=== PATIENT | female | born 1955 | race Caucasian/White ===

== ENCOUNTER 2020-07-19 13:59 | Inpatient (IN) | payer OTHER, BC ==
[~2020-07-19 13:59] MED LIST: Iopamidol-370 76% 500 ML 1 ML ONE
[2020-07-19] MEDS ORDERED: Ondansetron PF 4 MG/2 ML Vial ONE ×2 (14:27→16:25)
[2020-07-19 14:36] LABS: #Basophils 0.1 thou/uL (0.0-0.2); #Lymphocytes 0.7 thou/uL (1.20-3.40); #Monocytes 0.4 thou/uL (0.11-0.59); #Neutrophils 12.8 thou/uL (1.40-6.50); %Basophils 0.5 % (0.0-1.0); %Eosinophils 0.1 % (0.0-10.0); %Lymphocytes 5.1 % (21.0-51.0); %Monocytes 3.1 % (0.0-10.0); %Neutrophils 91.3 % (42.0-75.0); Hemoglobin 8.4 g/dL (12.0-16.0); Mean Corpuscular HGB CONC 31.7 g/dL (32.0-36.0); Mean Corpuscular Hemoglobin 30.9 pg (27.0-31.0); Mean Corpuscular Volume 97.3 fL (78.0-98.0); Mean Platelet Volume 9.7 fL (7.4-10.4); Platelet Count 259 thou/uL (130-400); RBC Distribution Width 12.7 % (11.5-14.5); Red Blood Cell (RBC) Count 2.71 mill/uL (4.20-5.40)
[2020-07-19] MEDS ORDERED: Morphine 4 MG/ML VIAL ONE ×2 (14:41→16:28)
[2020-07-19] MEDS ORDERED: Pantoprazole 80 MG, Admixture Fee 1 EACH in Sodium Chloride 0.9% 100 ML IVPB SCH ×2 (14:45)
[2020-07-19 14:58] LABS: ALT (SGPT) 83 U/L (8-55); AST (SGOT) 58 U/L (5-34); Albumin 3.2 g/dL (3.4-4.8); Alkaline Phosphatase 525 U/L (40-110); Anion Gap 13 mmol/L (10-20); BUN (Urea Nitrogen) 103 mg/dL (9.8-20.1); Bilirubin, Total 0.5 mg/dL (0.2-1.2); Calc. Creatinine Clearance 0 mL/min (70-130); Calcium 9.1 mg/dL (7.8-10.44); Carbon Dioxide 28 mmol/L (23-31); Chloride 97 mmol/L (98-107); Globulin 3.1 g/dL (2.4-3.5); Glucose 161 mg/dL (80-115); Lipase 85 U/L (8-78); Potassium 3.2 mmol/L (3.5-5.1); Protein, Total 6.3 g/dL (5.8-8.1); Sodium 135 mmol/L (136-145)
[2020-07-19 15:21] LABS: CKMB 8.7 ng/mL (0-6.6)
[2020-07-19 16:17] LABS: Bilirubin Negative (Negative); Blood, Urine Negative (Negative); Clarity Clear (Clear); Glucose, Urine (Dipstick) Normal (Negative); Ketone, Urine Negative (Negative); Leukocyte Negative Leu/uL (Negative); Nitrite Negative (Negative); Protein, Urine (Dipstick) Negative (Neg-Trace); Specific Gravity, Urine 1.023 (1.002-1.036); Urobilinogen Normal mg/dL (Less than 2); pH, Urine 6.5 (5.0-9.0)
[2020-07-19] MEDS ORDERED: Pantoprazole 40 MG VIAL ONE (16:28)
[2020-07-19] MEDS ORDERED: HYDROcodone/Acetaminophen 7.5/325 mg Tablet PO PRN (16:53)
[2020-07-19] MEDS ORDERED: HYDROcodone/Acetaminophen 5/325 mg Tablet PO PRN (16:53)
[2020-07-19] MEDS ORDERED: Senokot S 8.6-50 MG TAB PO PRN (16:53)
[2020-07-19] MEDS ORDERED: Octreotide Acetate 1,250 MCG in Sodium Chloride 0.9% 250 ML 250 ML IVPB SCH (17:00)
[2020-07-19] MEDS ORDERED: Octreotide Acetate 50 MCG/ML AMP SLOW IVP SCH (17:00)
[2020-07-19] MEDS ORDERED: Dextrose 5 % And 0.9 % NaCl 1,000 ML IV SCH (17:00)
[2020-07-19] MEDS ORDERED: HYDROmorphone 0.5 MG/0.5 ML SYRINGE ONE (17:22)
[2020-07-19] MEDS ORDERED: cefTRIAXone\\ROCEPHIN 1 GM in Sodium Chloride 0.9% 100 ML IVPB SCH (18:00)
[2020-07-19] MEDS ORDERED: HYDROmorphone 0.5 MG/0.5 ML SYRINGE SLOW IVP PRN (18:04)
[2020-07-19 20:10] LABS: Hemoglobin 8.6 g/dL (12.0-16.0); Platelet Count 259 thou/uL (130-400)
[2020-07-19 20:17] VITALS: BMI 16.6
[2020-07-19] MEDS: Potassium Chloride 20 MEQ in Premix Bag 1 BAG IVPB SCH (23:23)
[2020-07-19] MEDS: Morphine 4 MG/ML VIAL SLOW IVP PRN (23:26)
[2020-07-19] MEDS: Dextrose 5 % And 0.9 % NaCl 1,000 ML IV SCH (23:49)
[2020-07-20] MEDS: Potassium Chloride 20 MEQ in Premix Bag 1 BAG IVPB SCH (01:36)
[2020-07-20 02:20] LABS: Hemoglobin 8.5 g/dL (12.0-16.0); Platelet Count 269 thou/uL (130-400)
[2020-07-20] MEDS: Morphine 4 MG/ML VIAL SLOW IVP PRN ×2 (03:31→09:09)
[2020-07-20] MEDS: Ondansetron PF 4 MG/2 ML Vial IVP PRN ×2 (03:42→09:14)
[2020-07-20 06:27] LABS: Anion Gap 21 mmol/L (10-20); BUN (Urea Nitrogen) 93 mg/dL (9.8-20.1); Calc. Creatinine Clearance 25 mL/min (70-130); Calcium 8.4 mg/dL (7.8-10.44); Carbon Dioxide 17 mmol/L (23-31); Chloride 108 mmol/L (98-107); Glucose 239 mg/dL (80-115); Potassium 3.6 mmol/L (3.5-5.1); Sodium 142 mmol/L (136-145)
[2020-07-20 06:32] LABS: Hemoglobin 8.3 g/dL (12.0-16.0); Mean Corpuscular HGB CONC 31.1 g/dL (32.0-36.0); Mean Corpuscular Hemoglobin 31.2 pg (27.0-31.0); Mean Platelet Volume 10.2 fL (7.4-10.4); Platelet Count 281 thou/uL (130-400); RBC Distribution Width 13.3 % (11.5-14.5); Red Blood Cell (RBC) Count 2.64 mill/uL (4.20-5.40); White Blood Cell (WBC) Count 44.5 thou/uL (4.8-10.8)
[2020-07-20 07:00] LABS: Band 35 % (5-11); Lymphocytes 2 % (21-51); MDiff Complete? YES; Metamyelocyte 1 % (0-0); Monocytes 1 % (0-10); Myelocyte 2 % (0-0); Neutrophil 59 % (42-75)
[2020-07-20] MEDS ORDERED: ALPRAZolam 0.5 MG TAB PO PRN (07:33)
[2020-07-20] MEDS: Venlafaxine XR 37.5 MG CAP PO SCH ×2 (08:13→20:07)
[2020-07-20 08:19] LABS: Hemoglobin 8.5 g/dL (12.0-16.0); Platelet Count 254 thou/uL (130-400)
[2020-07-20 08:49] LABS: SARS-CoV-2 PCR by NAA Not Detected (NotDetected)
[2020-07-20] MEDS ORDERED: Ursodiol 300 MG CAP PO SCH (09:00)
[2020-07-20] MEDS ORDERED: Colestipol HCl 5 GM PK PO SCH (09:00)
[2020-07-20] MEDS ORDERED: Non-Formulary Item 1 EACH (Levothyroxine Sodium [Levothyroxine] 50 MCG Capsule) PO SCH (09:00)
[2020-07-20] MEDS: Dextrose 5 % And 0.9 % NaCl 1,000 ML IV SCH (09:18)
[2020-07-20] MEDS ORDERED: Sodium Chloride 0.9% 1,000 ML IV SCH ×2 (12:45)
[2020-07-20] MEDS ORDERED: Dexmedetomidine 200 MCG/2 ML VIAL ONE (13:23)
[2020-07-20] MEDS ORDERED: Fentanyl 100 MCG/2 ML VIAL ONE ×2 (13:23→16:06)
[2020-07-20] MEDS ORDERED: Bupivacaine PF 0.5% 30 ML VIAL ONE (13:47)
[2020-07-20] MEDS ORDERED: Lidocaine 1% w/Epinephrine 1:100K 20 ML VIAL ONE (13:47)
[2020-07-20] MEDS: MEROPENEM 1 GM/50 ML 1 GM in Premix Bag 1 BAG IVPB SCH ×2 (13:52→21:20)
[2020-07-20] MEDS ORDERED: Phenylephrine 10 MG/ML VIAL ONE ×2 (13:59→15:10)
[2020-07-20] MEDS ORDERED: Norepinephrine 4 MG/4 ML VIAL ONE (14:04)
[2020-07-20] MEDS ORDERED: Lidocaine 1% PF 5 ML VIAL ONE (14:19)
[2020-07-20] MEDS ORDERED: Dexamethasone 20 MG/5 ML VIAL ONE (14:19)
[2020-07-20] MEDS ORDERED: Succinylcholine 200 MG/10 ml SYRINGE FS ONE (14:19)
[2020-07-20] MEDS ORDERED: Rocuronium Bromide 10 MG/ML (10ML VIAL) ONE (14:19)
[2020-07-20] MEDS ORDERED: PHENYLEPHRINE-NS 100 MCG/ML 10 ML SYRINGE ONE (14:19)
[2020-07-20] MEDS ORDERED: PROPOFOL 200 MG/20 ML VIAL ONE (14:19)
[2020-07-20] MEDS ORDERED: Sodium Chloride 0.9% 20 ML ONE (14:42)
[2020-07-20] MEDS ORDERED: Propofol BOLUS 1,000 MG/100 ML VIAL IV PRN (16:15)
[2020-07-20] MEDS ORDERED: Fentanyl BOLUS 250 ML IVPB PRN (16:15)
[2020-07-20] MEDS ORDERED: Lorazepam 2 MG/ML VIAL SLOW IVP PRN (16:15)
[2020-07-20] MEDS ORDERED: Ventilator Sedation Protocol 1 EACH FS SCH (16:15)
[2020-07-20] MEDS ORDERED: Morphine 2 MG/ML VIAL SLOW IVP PRN (16:15)
[2020-07-20] MEDS ORDERED: Fentanyl CADD 100 ML IV SCH (16:15)
[2020-07-20] MEDS ORDERED: DISCONTINUE PREVIOUS NARCOTIC PAIN MEDICATIONS AND BENZODIAZEPINES FS SCH (16:15)
[2020-07-20] MEDS ORDERED: Morphine 4 MG/ML VIAL SLOW IVP PRN (16:15)
[2020-07-20 16:55] LABS: Actual Bicarbonate (HCO3a) 16.7 mEq/L (22-28); Base Excess (BEa) -9.4 mEq/L (-2.0 to +3.0); CO2 Tension 37.1 mmHg (35.0-45.0); Calcium, Ionized (arterial) 1.05 mmol/L (1.12-1.30); Carboxyhemoglobin (COHb) 3.4 gm% (0.0-3.0); Hemoglobin (Hb) 6.1 g/dL (12.0-16.0); O2 Tension (PaO2), arterial 324.4 mmHg (> 80.0); Potassium - ABG Lab 3.82 mmol/L (3.70-5.30); pH, Arterial 7.27 (7.35-7.45)
[2020-07-20 16:56] LABS: ALV-art Gradient 57.025 mmHg (0-20); Puncture Site LRA
[2020-07-20] MEDS: Propofol 1,000 MG/100 ML VIAL IV PRN (17:38)
[2020-07-20] MEDS: Albumin 25% 25 GM/100 ML BOT IVPB SCH (17:38)
[2020-07-20] MEDS: Sodium Chloride 0.9% 1,000 ML IV SCH (17:56)
[2020-07-20] MEDS: Albuterol Sulfate 2.5 mg/3 ml Neb NEB SCH ×2 (18:49→23:27)
[2020-07-20] MEDS: hydrALAZINE 20 MG/ML VIAL SLOW IVP PRN (19:34)
[2020-07-20] MEDS: Enoxaparin Sodium 30 MG/0.3 ML SYRINGE SC SCH (20:04)
[2020-07-21] MEDS: Sodium Chloride 0.9% 1,000 ML IV SCH ×2 (00:10→16:35)
[2020-07-21] MEDS: Albumin 25% 25 GM/100 ML BOT IVPB SCH ×2 (00:53→05:07)
[2020-07-21 04:15] LABS: Anion Gap 14 mmol/L (10-20); BUN (Urea Nitrogen) 67 mg/dL (9.8-20.1); Calc. Creatinine Clearance 27 mL/min (70-130); Calcium 7.6 mg/dL (7.8-10.44); Carbon Dioxide 19 mmol/L (23-31); Chloride 118 mmol/L (98-107); Glucose 142 mg/dL (80-115); Magnesium 1.6 mg/dL (1.6-2.6); Potassium 3.4 mmol/L (3.5-5.1); Sodium 148 mmol/L (136-145)
[2020-07-21 04:26] LABS: Band 26 % (5-11); Hemoglobin 7.9 g/dL (12.0-16.0); Hypochromia SLIGHT = 6-15 cells (100X) (0-5/hpf); Lymphocytes 8 % (21-51); MDiff Complete? YES; Mean Corpuscular HGB CONC 33.2 g/dL (32.0-36.0); Mean Corpuscular Hemoglobin 30.1 pg (27.0-31.0); Mean Corpuscular Volume 90.7 fL (78.0-98.0); Mean Platelet Volume 9.7 fL (7.4-10.4); Metamyelocyte 5 % (0-0); Monocytes 7 % (0-10); Neutrophil 54 % (42-75); Platelet Count 115 thou/uL (130-400); Platelet Morphology Comment Appears Decreased; RBC Distribution Width 16.3 % (11.5-14.5); Red Blood Cell (RBC) Count 2.63 mill/uL (4.20-5.40); White Blood Cell (WBC) Count 12.1 thou/uL (4.8-10.8)
[2020-07-21] MEDS: Propofol 1,000 MG/100 ML VIAL IV PRN (05:09)
[2020-07-21] MEDS: MEROPENEM 1 GM/50 ML 1 GM in Premix Bag 1 BAG IVPB SCH ×3 (05:10→21:34)
[2020-07-21] MEDS ORDERED: Levothyroxine Sodium 50 MCG TAB PO SCH (06:00)
[2020-07-21 07:01] LABS: Actual Bicarbonate (HCO3a) 19.1 mEq/L (22-28); Base Excess (BEa) -3.7 mEq/L (-2.0 to +3.0); CO2 Tension 27.5 mmHg (35.0-45.0); Calcium, Ionized (arterial) 0.99 mmol/L (1.12-1.30); Carboxyhemoglobin (COHb) 1.1 gm% (0.0-3.0); Hemoglobin (Hb) 10.5 g/dL (12.0-16.0); Potassium - ABG Lab 2.99 mmol/L (3.70-5.30); pH, Arterial 7.46 (7.35-7.45)
[2020-07-21 07:14] LABS: ALV-art Gradient 199.525 mmHg (0-20); O2 Tension (PaO2), arterial 51.3 mmHg (> 80.0); Puncture Site RBA
[2020-07-21] MEDS: Albuterol Sulfate 2.5 mg/3 ml Neb NEB SCH ×4 (07:17→23:17)
[2020-07-21] MEDS ORDERED: DC Sedation Protocol FS ONE (07:39)
[2020-07-21] MEDS: Sodium Chloride 0.45% 1,000 ML IV SCH ×2 (09:19→18:28)
[2020-07-21] MEDS ORDERED: Fentanyl 100 MCG/2 ML VIAL SLOW IVP PRN (09:56)
[2020-07-21] MEDS: hydrALAZINE 20 MG/ML VIAL SLOW IVP PRN (11:05)
[2020-07-21] MEDS: Venlafaxine XR 37.5 MG CAP PO SCH ×2 (11:05→21:38)
[2020-07-21] MEDS: Enoxaparin Sodium 30 MG/0.3 ML SYRINGE SC SCH (21:37)
[2020-07-21] MEDS: Acetaminophen 325 MG TAB PO PRN (21:38)
[2020-07-22] MEDS: Sodium Chloride 0.45% 1,000 ML IV SCH (04:37)
[2020-07-22] MEDS: MEROPENEM 1 GM/50 ML 1 GM in Premix Bag 1 BAG IVPB SCH ×3 (05:46→22:34)
[2020-07-22] MEDS: Acetaminophen 325 MG TAB PO PRN (05:55)
[2020-07-22 05:58] LABS: Hemoglobin 8.5 g/dL (12.0-16.0); Mean Corpuscular HGB CONC 31.6 g/dL (32.0-36.0); Mean Corpuscular Hemoglobin 28.6 pg (27.0-31.0); Mean Corpuscular Volume 90.6 fL (78.0-98.0); Mean Platelet Volume 10.5 fL (7.4-10.4); Platelet Count 137 thou/uL (130-400); RBC Distribution Width 16.6 % (11.5-14.5); Red Blood Cell (RBC) Count 2.98 mill/uL (4.20-5.40); White Blood Cell (WBC) Count 11.7 thou/uL (4.8-10.8)
[2020-07-22 06:11] LABS: Anion Gap 11 mmol/L (10-20); BUN (Urea Nitrogen) 52 mg/dL (9.8-20.1); Calc. Creatinine Clearance 32 mL/min (70-130); Calcium 8.5 mg/dL (7.8-10.44); Carbon Dioxide 25 mmol/L (23-31); Chloride 114 mmol/L (98-107); Glucose 118 mg/dL (80-115); Sodium 148 mmol/L (136-145)
[2020-07-22 06:14] LABS: Potassium 2.3 mmol/L (3.5-5.1)
[2020-07-22 06:23] LABS: Lymphocytes 4 % (21-51); MDiff Complete? YES; Metamyelocyte 2 % (0-0); Monocytes 2 % (0-10); Neutrophil 91 % (42-75); Platelet Morphology Comment Appears Adequate; Reactive Lymphocytes 1 % (0-10)
[2020-07-22] MEDS ORDERED: Potassium Chloride 20 MEQ TAB PO SCH (06:45)
[2020-07-22] MEDS ORDERED: Potassium Chloride 40 MEQ in Premix Bag 1 BAG IVPB SCH (07:00)
[2020-07-22] MEDS: Albuterol Sulfate 2.5 mg/3 ml Neb NEB SCH ×4 (07:15→23:35)
[2020-07-22] MEDS ORDERED: EPINEPHrine 1 MG/10 ML Abboject SYRINGE ONE (08:23)
[2020-07-22] MEDS ORDERED: Sodium Chloride 0.9% 500 ML IV SCH (08:30)
[2020-07-22] MEDS ORDERED: Norepinephrine 8 MG/0.9% NS 250 ML ONE (08:46)
[2020-07-22 09:10] LABS: Actual Bicarbonate (HCO3a) 10.2 mEq/L (22-28); Base Excess (BEa) -15.9 mEq/L (-2.0 to +3.0); Carboxyhemoglobin (COHb) 1.8 gm% (0.0-3.0); O2 Tension (PaO2), arterial 320.5 mmHg (> 80.0); Potassium - ABG Lab 2.78 mmol/L (3.70-5.30)
[2020-07-22 09:12] LABS: pH, Arterial 7.23 (7.35-7.45)
[2020-07-22 09:13] LABS: CO2 Tension 24.7 mmHg (35.0-45.0); Hemoglobin (Hb) 5.3 g/dL (12.0-16.0)
[2020-07-22 09:14] LABS: ALV-art Gradient 76.425 mmHg (0-20); Puncture Site RBA
[2020-07-22] MEDS ORDERED: Norepinephrine 8 MG/0.9% NS 250 ML IVPB SCH (09:30)
[2020-07-22] MEDS ORDERED: Electrolyte Replacement Protocol 1 EACH FS SCH (09:45)
[2020-07-22 09:59] LABS: #Lymphocytes 1.4 thou/uL (1.20-3.40); #Monocytes 0.4 thou/uL (0.11-0.59); #Neutrophils 6.8 thou/uL (1.40-6.50); %Basophils 0.1 % (0.0-1.0); %Eosinophils 0.2 % (0.0-10.0); %Lymphocytes 16.3 % (21.0-51.0); %Monocytes 4.9 % (0.0-10.0); %Neutrophils 78.5 % (42.0-75.0); Hemoglobin 4.9 g/dL (12.0-16.0); Mean Corpuscular Hemoglobin 31.2 pg (27.0-31.0); Mean Corpuscular Volume 94.4 fL (78.0-98.0); Platelet Count 131 thou/uL (130-400); RBC Distribution Width 17.1 % (11.5-14.5); Red Blood Cell (RBC) Count 1.58 mill/uL (4.20-5.40); White Blood Cell (WBC) Count 8.7 thou/uL (4.8-10.8)
[2020-07-22] MEDS: Venlafaxine XR 37.5 MG CAP PO SCH (10:00)
[2020-07-22] MEDS ORDERED: Pantoprazole 40 MG VIAL IVP SCH (10:00)
[2020-07-22] MEDS ORDERED: Lactated Ringer's 1,000 ML IV SCH (10:00)
[2020-07-22] MEDS ORDERED: Lactated Ringer's 500 ML IV SCH (10:00)
[2020-07-22 10:06] LABS: INR-International Normal Ratio 1.5; PTT 40.7 sec (22.9-36.1); Prothrombin Time 18.2 sec (12.0-14.7)
[2020-07-22] MEDS: Potassium Chloride 40 MEQ in Sodium Chloride 0.9% 250 ML 250 ML IVPB SCH (10:10)
[2020-07-22 10:17] LABS: ALT (SGPT) 212 U/L (8-55); AST (SGOT) 269 U/L (5-34); Albumin 2.3 g/dL (3.4-4.8); Alkaline Phosphatase 124 U/L (40-110); Anion Gap 27 mmol/L (10-20); BUN (Urea Nitrogen) 56 mg/dL (9.8-20.1); Bilirubin, Total 1.4 mg/dL (0.2-1.2); Calc. Creatinine Clearance 24 mL/min (70-130); Calcium 7.4 mg/dL (7.8-10.44); Carbon Dioxide 10 mmol/L (23-31); Chloride 118 mmol/L (98-107); Globulin 1.7 g/dL (2.4-3.5); Sodium 152 mmol/L (136-145)
[2020-07-22 10:23] LABS: Glucose 36 mg/dL (80-115); Potassium 2.9 mmol/L (3.5-5.1)
[2020-07-22] MEDS ORDERED: Dextrose 50% Abboject 50 ML SYRINGE ONE (10:27)
[2020-07-22] MEDS ORDERED: Succinylcholine 200 MG/10 ml SYRINGE FS ONE (10:29)
[2020-07-22] MEDS ORDERED: Phenylephrine 10 MG/ML VIAL ONE (10:33)
[2020-07-22] MEDS ORDERED: Fentanyl 100 MCG/2 ML VIAL ONE (10:33)
[2020-07-22] MEDS ORDERED: Ketamine 50 MG/ML (10ML VIAL) ONE (10:33)
[2020-07-22] MEDS ORDERED: Norepinephrine 4 MG/4 ML VIAL ONE (10:33)
[2020-07-22] MEDS ORDERED: Vecuronium 10 MG VIAL ONE ×4 (10:42→10:49)
[2020-07-22] MEDS ORDERED: Calcium Chloride 1 GM/10 ML Abboject SYRINGE ONE ×2 (10:49→11:28)
[2020-07-22] MEDS ORDERED: PHENYLEPHRINE-NS 100 MCG/ML 10 ML SYRINGE ONE (10:49)
[2020-07-22] MEDS ORDERED: ePHEDrine Sulfate 50 MG/10 ML VIAL ONE (10:49)
[2020-07-22] MEDS ORDERED: Sodium Bicarbonate 2.5 MEQ/5 ML VIAL ONE ×2 (11:11→11:28)
[2020-07-22] MEDS ORDERED: Sodium Bicarb 50 MEQ/50 ML Abboject 8.4% SYRINGE ONE ×2 (11:11→11:29)
[2020-07-22] MEDS ORDERED: Midazolam HCl 5 mg/5 ml Vial ONE (11:13)
[2020-07-22 11:21] LABS: Lactic Acid 14.7 mmol/L (0.5-2.2)
[2020-07-22] MEDS ORDERED: Magnesium 2 GM/50 ML 2 GM in Premix Bag 1 BAG IVPB SCH (11:30)
[2020-07-22 13:32] LABS: Actual Bicarbonate (HCO3a) 16.2 mEq/L (22-28); Base Excess (BEa) -3.8 mEq/L (-2.0 to +3.0); Carboxyhemoglobin (COHb) 0.4 gm% (0.0-3.0); Hemoglobin (Hb) 11.2 g/dL (12.0-16.0); O2 Tension (PaO2), arterial 88.3 mmHg (> 80.0)
[2020-07-22] MEDS: Dextrose 5% w/ 20 mEq KCl 1,000 ML IV SCH (13:58)
[2020-07-22 14:12] LABS: INR-International Normal Ratio 1.4; PTT 34.3 sec (22.9-36.1); Prothrombin Time 17.4 sec (12.0-14.7)
[2020-07-22 14:13] LABS: Hemoglobin 12.4 g/dL (12.0-16.0); Mean Corpuscular HGB CONC 33.7 g/dL (32.0-36.0); Mean Corpuscular Hemoglobin 29.8 pg (27.0-31.0); Mean Corpuscular Volume 88.5 fL (78.0-98.0); Mean Platelet Volume 10.5 fL (7.4-10.4); Platelet Count 83 thou/uL (130-400); RBC Distribution Width 14.1 % (11.5-14.5); Red Blood Cell (RBC) Count 4.14 mill/uL (4.20-5.40); White Blood Cell (WBC) Count 9.9 thou/uL (4.8-10.8)
[2020-07-22 14:21] LABS: Band 18 % (5-11); Lymphocytes 4 % (21-51); MDiff Complete? YES; Neutrophil 78 % (42-75); Nucleated RBC 2 % (0); Ovalocytes SLIGHT = 2-5 cells (100X) (0-1/hpf); Platelet Morphology Comment Appears Decreased; Polychromasia SLIGHT = 2-3 cells (100X) (0-2/hpf); Vacuoles SLIGHT
[2020-07-22 14:39] LABS: CO2 Tension 18.1 mmHg (35.0-45.0); pH, Arterial 7.57 (7.35-7.45)
[2020-07-22 14:39] LABS: ALT (SGPT) 1351 U/L (8-55); AST (SGOT) 1794 U/L (5-34); Albumin 2.4 g/dL (3.4-4.8); Alkaline Phosphatase 119 U/L (40-110); Anion Gap 19 mmol/L (10-20); BUN (Urea Nitrogen) 55 mg/dL (9.8-20.1); Bilirubin, Total 2.5 mg/dL (0.2-1.2); Calc. Creatinine Clearance 30 mL/min (70-130); Calcium 7.8 mg/dL (7.8-10.44); Carbon Dioxide 19 mmol/L (23-31); Chloride 118 mmol/L (98-107); Globulin 1.8 g/dL (2.4-3.5); Glucose 138 mg/dL (80-115); Potassium 2.6 mmol/L (3.5-5.1); Protein, Total 4.2 g/dL (5.8-8.1); Sodium 153 mmol/L (136-145)
[2020-07-22 14:40] LABS: Puncture Site Arterial Line
[2020-07-22] MEDS: metroNIDAZOLE 500 MG in Premix Bag 1 BAG IVPB SCH ×2 (14:41→18:38)
[2020-07-22 14:44] LABS: ALV-art Gradient 174.275 mmHg (0-20)
[2020-07-22 15:24] LABS: CKMB 28.3 ng/mL (0-6.6)
[2020-07-22] MEDS: Potassium Chloride 40 MEQ in Premix Bag 1 BAG IVPB SCH ×2 (15:56→19:38)
[2020-07-22] MEDS ORDERED: Morphine 2 MG/ML VIAL SLOW IVP PRN (19:15)
[2020-07-22] MEDS ORDERED: Fentanyl CADD 100 ML IV SCH (19:15)
[2020-07-22] MEDS ORDERED: Propofol 1,000 MG/100 ML VIAL IV PRN (19:15)
[2020-07-22] MEDS ORDERED: Fentanyl BOLUS 250 ML IVPB PRN (19:15)
[2020-07-22] MEDS ORDERED: DISCONTINUE PREVIOUS NARCOTIC PAIN MEDICATIONS AND BENZODIAZEPINES FS SCH (19:15)
[2020-07-22] MEDS ORDERED: Morphine 4 MG/ML VIAL SLOW IVP PRN (19:15)
[2020-07-22] MEDS ORDERED: Propofol BOLUS 1,000 MG/100 ML VIAL IV PRN (19:15)
[2020-07-22 19:36] LABS: Hemoglobin 13.8 g/dL (12.0-16.0)
[2020-07-22 19:49] LABS: Potassium 3.5 mmol/L (3.5-5.1)
[2020-07-22] MEDS: Pantoprazole 40 MG VIAL IVP SCH (22:34)
[2020-07-23] MEDS: metroNIDAZOLE 500 MG in Premix Bag 1 BAG IVPB SCH ×5 (00:10→23:39)
[2020-07-23] MEDS: Dextrose 5% w/ 20 mEq KCl 1,000 ML IV SCH ×3 (00:29→23:39)
[2020-07-23 03:51] LABS: Potassium 4.2 mmol/L (3.5-5.1)
[2020-07-23 03:56] LABS: Anion Gap 15 mmol/L (10-20); BUN (Urea Nitrogen) 60 mg/dL (9.8-20.1); Calc. Creatinine Clearance 24 mL/min (70-130); Calcium 7.5 mg/dL (7.8-10.44); Carbon Dioxide 18 mmol/L (23-31); Chloride 117 mmol/L (98-107); Glucose 107 mg/dL (80-115); Magnesium 2.5 mg/dL (1.6-2.6); Phosphorus 4.5 mg/dL (2.3-4.7); Potassium 4.2 mmol/L (3.5-5.1); Sodium 146 mmol/L (136-145)
[2020-07-23 04:04] LABS: Band 42 % (5-11); Hemoglobin 13.5 g/dL (12.0-16.0); Lymphocytes 1 % (21-51); MDiff Complete? YES; Mean Corpuscular HGB CONC 33.8 g/dL (32.0-36.0); Mean Corpuscular Hemoglobin 29.6 pg (27.0-31.0); Mean Corpuscular Volume 87.6 fL (78.0-98.0); Mean Platelet Volume 10.7 fL (7.4-10.4); Monocytes 8 % (0-10); Neutrophil 49 % (42-75); Nucleated RBC 1 % (0); Platelet Count 92 thou/uL (130-400); Platelet Morphology Comment Appears Decreased; RBC Distribution Width 14.1 % (11.5-14.5); RBC Morphology Normal; Red Blood Cell (RBC) Count 4.57 mill/uL (4.20-5.40); White Blood Cell (WBC) Count 15.7 thou/uL (4.8-10.8)
[2020-07-23] MEDS: MEROPENEM 1 GM/50 ML 1 GM in Premix Bag 1 BAG IVPB SCH ×3 (05:17→21:05)
[2020-07-23] MEDS ORDERED: Fentanyl CADD 100 ML ONE (07:09)
[2020-07-23] MEDS: Albuterol Sulfate 2.5 mg/3 ml Neb NEB SCH ×4 (07:49→23:50)
[2020-07-23] MEDS: Pantoprazole 40 MG VIAL IVP SCH ×2 (09:02→20:52)
[2020-07-23] MEDS: Potassium Chloride 40 MEQ in Sodium Chloride 0.9% 250 ML 250 ML IVPB SCH (12:08)
[2020-07-23] MEDS: Lorazepam 2 MG/ML VIAL SLOW IVP PRN (12:36)
[2020-07-23] MEDS ORDERED: Aspirin Chewable 81 MG TAB ONE (17:07)
[2020-07-23] MEDS ORDERED: Aspirin Chewable 81 MG TAB PO SCH (17:15)
[2020-07-23] MEDS: Enoxaparin Sodium 30 MG/0.3 ML SYRINGE SC SCH ×2 (19:27→20:51)
[2020-07-23 23:52] VITALS: BP 175/92
[2020-07-24 05:06] LABS: INR-International Normal Ratio 1.1; PTT 31.9 sec (22.9-36.1); Prothrombin Time 14.9 sec (12.0-14.7)
[2020-07-24 05:18] LABS: Band 1 % (5-11); Hemoglobin 12.1 g/dL (12.0-16.0); Lymphocytes 6 % (21-51); MDiff Complete? YES; Mean Corpuscular HGB CONC 34.3 g/dL (32.0-36.0); Mean Corpuscular Hemoglobin 30.8 pg (27.0-31.0); Mean Corpuscular Volume 89.8 fL (78.0-98.0); Mean Platelet Volume 11.1 fL (7.4-10.4); Metamyelocyte 8 % (0-0); Monocytes 2 % (0-10); Neutrophil 82 % (42-75); Nucleated RBC 7 % (0); Platelet Count 86 thou/uL (130-400); Platelet Morphology Comment Appears Decreased; RBC Distribution Width 14.4 % (11.5-14.5); Reactive Lymphocytes 1 % (0-10); Red Blood Cell (RBC) Count 3.94 mill/uL (4.20-5.40); White Blood Cell (WBC) Count 22.9 thou/uL (4.8-10.8)
[2020-07-24 05:22] LABS: Anion Gap 14 mmol/L (10-20); BUN (Urea Nitrogen) 53 mg/dL (9.8-20.1); Calc. Creatinine Clearance 24 mL/min (70-130); Calcium 7.1 mg/dL (7.8-10.44); Carbon Dioxide 16 mmol/L (23-31); Chloride 113 mmol/L (98-107); Glucose 107 mg/dL (80-115); Potassium 5.1 mmol/L (3.5-5.1); Sodium 138 mmol/L (136-145)
[2020-07-24] MEDS: MEROPENEM 1 GM/50 ML 1 GM in Premix Bag 1 BAG IVPB SCH (05:22)
[2020-07-24] MEDS: metroNIDAZOLE 500 MG in Premix Bag 1 BAG IVPB SCH (05:22)
[2020-07-24 06:12] LABS: Cardiac Risk 5.5 (Less than 4.5); Cholesterol 60 mg/dl (< 200 Desired); HDL Cholesterol 11 mg/dL (>60 Neg Risk); LDL Cholesterol, Calculated 30 mg/dL; Phosphorus 4.9 mg/dL (2.3-4.7); Triglycerides 94 mg/dL (Less than 150)
[2020-07-24] MEDS ORDERED: Magnesium 2 GM/50 ML 2 GM in Premix Bag 1 BAG IVPB SCH (06:15)
[2020-07-24] MEDS ORDERED: Sterile Water 0 ML ONE (07:00)
[2020-07-24] MEDS ORDERED: Sodium Chloride 0.9% 10 ML ONE (07:02)
[2020-07-24] MEDS: Dextrose 5% w/ 20 mEq KCl 1,000 ML IV SCH (07:24)
[2020-07-24] MEDS: Pantoprazole 40 MG VIAL IVP SCH (08:06)
[2020-07-24] MEDS: Albuterol Sulfate 2.5 mg/3 ml Neb NEB SCH ×2 (08:13→13:25)
[2020-07-24 08:32] VITALS: TEMP 99.9
[2020-07-24] MEDS ORDERED: Aspirin Chewable 81 MG TAB PO SCH (09:00)
[2020-07-24] MEDS ORDERED: Sodium Chloride 0.45% 1,000 ML IV SCH (09:30)
[2020-07-24] MEDS ORDERED: Morphine 4 MG/ML VIAL SLOW IVP PRN ×3 (14:22→14:25)
[2020-07-24] MEDS ORDERED: diphenhydrAMINE 25 MG CAP PO PRN (14:23)
[2020-07-24] MEDS ORDERED: diphenhydrAMINE 50 MG/ML VIAL IVP PRN (14:24)
[2020-07-24] MEDS: Lorazepam 2 MG/ML VIAL SLOW IVP PRN (14:28)
[2020-07-24] MEDS ORDERED: Acetaminophen 325 MG TAB PO PRN (14:30)
[2020-07-24] MEDS ORDERED: Meropenem 500 MG in Sodium Chloride 0.9% 100 ML IVPB SCH (21:00)
[2020-07-26 11:58] LABS: ANA Symphony (Qualitative) Negative (Negative); ANA Symphony (Quantitative) 0.2 Ratio (< 0.7 Negative)
[2020-07-26 14:05] LABS: Actual Bicarbonate (HCO3a) 21.4 mEq/L (22-28); Analyzer IN Cardio OR; CO2 Tension 49.8 mmHg (35.0-45.0); Calcium, Ionized (arterial) 1.12 mmol/L (1.12-1.30); Carboxyhemoglobin (COHb) 0.6 gm% (0.0-3.0); Hemoglobin (Hb) 12.5 g/dL (12.0-16.0); Potassium - ABG Lab 3.36 mmol/L (3.70-5.30)
[2020-07-26 14:05] LABS: Actual Bicarbonate (HCO3v) 16 mEq/L (22-28); Analyzer IN Cardio OR; Base Excess -12.8 mEq/L (-2.0 to +3.0); Calcium, Ionized (venous) 1.06 mmol/L (1.16-1.32); Chloride (VBG) 117 mmol/L (98-106); Potassium (VBG) 3.56 mmol/L (3.70-5.30); Sodium 147.4 mmol/L (133-146)
[2020-07-26 14:07] LABS: pH, Arterial 7.25 (7.35-7.45)
[2020-07-26 14:07] LABS: pH (venous) 7.15 (7.32-7.43)
[2020-07-26 14:08] LABS: O2 Tension (PaO2), arterial 607.7 mmHg (> 80.0); Puncture Site Arterial Line
== END 2020-07-24 15:08 | disposition hospice, inpatient (51) | DRG 853 ==
LOC: ERS 13:59 → INTOOBSV 16:06 → OBSVTOIN 16:06 → ONC 16:06 → OBSVTOIN 07-20 07:40 → CCU 07-20 16:46 → SJJU 07-21 15:29 → CCU 07-22 08:37
PROVIDERS: ADMIT Family Medicine; ATTEND Internal Medicine
PROC: 0DBF0ZZ Excision of Right Large Intestine, Open Approach (ICD-10-PCS; principal; 2020-07-20)
PROC: 0W9B30Z Drainage of Left Pleural Cavity with Drainage Device, Percutaneous Approach (ICD-10-PCS; 2020-07-20)
PROC: 0D1B0Z4 Bypass Ileum to Cutaneous, Open Approach (ICD-10-PCS; 2020-07-20)
PROC: 02HV33Z Insertion of Infusion Device into Superior Vena Cava, Percutaneous Approach (ICD-10-PCS; 2020-07-20)
PROC: 5A1935Z Respiratory Ventilation, Less than 24 Consecutive Hours (ICD-10-PCS; 2020-07-20)
PROC: 07TP0ZZ Resection of Spleen, Open Approach (ICD-10-PCS; 2020-07-22)
PROC: 3E033XZ Introduction of Vasopressor into Peripheral Vein, Percutaneous Approach (ICD-10-PCS; 2020-07-22)
PROC: 0W9G3ZZ Drainage of Peritoneal Cavity, Percutaneous Approach (ICD-10-PCS; 2020-07-22)
PROC: 30233N1 Transfusion of Nonautologous Red Blood Cells into Peripheral Vein, Percutaneous Approach (ICD-10-PCS; 2020-07-22)
PROC: 5A12012 Performance of Cardiac Output, Single, Manual (ICD-10-PCS; 2020-07-22)
PROC: 5A1945Z Respiratory Ventilation, 24-96 Consecutive Hours (ICD-10-PCS; 2020-07-22)
PROC: 0T9B70Z Drainage of Bladder with Drainage Device, Via Natural or Artificial Opening (ICD-10-PCS; 2020-07-22)
PROC: 0BH17EZ Insertion of Endotracheal Airway into Trachea, Via Natural or Artificial Opening (ICD-10-PCS; 2020-07-22)
DX: A41.9 Sepsis, unspecified organism (principal); K55.049 Acute infarction of large intestine, extent unspecified; J95.811 Postprocedural pneumothorax; E43 Unspecified severe protein-calorie malnutrition; I46.8 Cardiac arrest due to other underlying condition; D65 Disseminated intravascular coagulation [defibrination syndrome]; R57.8 Other shock; I63.9 Cerebral infarction, unspecified; K66.1 Hemoperitoneum; J95.821 Acute postprocedural respiratory failure; E87.2 Acidosis; D62 Acute posthemorrhagic anemia; Z68.1 Body mass index [BMI] 19.9 or less, adult; N17.9 Acute kidney failure, unspecified; K55.9 Vascular disorder of intestine, unspecified; E87.0 Hyperosmolality and hypernatremia; G81.91 Hemiplegia, unspecified affecting right dominant side; I70.263 Atherosclerosis of native arteries of extremities with gangrene, bilateral legs; G93.1 Anoxic brain damage, not elsewhere classified; I97.821 Postprocedural cerebrovascular infarction following other surgery; D78.01 Intraoperative hemorrhage and hematoma of the spleen complicating a procedure on the spleen; R64 Cachexia; Z20.822 Contact with and (suspected) exposure to COVID-19; Z51.5 Encounter for palliative care; Z66 Do not resuscitate; I10 Essential (primary) hypertension; E03.9 Hypothyroidism, unspecified; F41.9 Anxiety disorder, unspecified; K74.3 Primary biliary cirrhosis; E78.5 Hyperlipidemia, unspecified; G25.81 Restless legs syndrome; K22.2 Esophageal obstruction; R13.10 Dysphagia, unspecified; R65.20 Severe sepsis without septic shock; K27.7 Chronic peptic ulcer, site unspecified, without hemorrhage or perforation; E87.6 Hypokalemia; R29.719 NIHSS score 19; E16.2 Hypoglycemia, unspecified; Z79.899 Other long term (current) drug therapy; Z85.89 Personal history of malignant neoplasm of other organs and systems; Z92.3 Personal history of irradiation; Z92.21 Personal history of antineoplastic chemotherapy; Z93.1 Gastrostomy status; Z79.890 Hormone replacement therapy; Z85.118 Personal history of other malignant neoplasm of bronchus and lung; Z87.891 Personal history of nicotine dependence; Z85.810 Personal history of malignant neoplasm of tongue; Z78.1 Physical restraint status; Y83.8 Other surgical procedures as the cause of abnormal reaction of the patient, or of later complication, without mention of misadventure at the time of the procedure; Y92.234 Operating room of hospital as the place of occurrence of the external cause
CPT/HCPCS: 36415; 36416; 36430; 36600; 51701; 70450; 71045; 74177; 76705; 76770; 80048; 80053; 80061; 81003; 82553; 82805; 83605; 83690; 83735; 84100; 84134; 84484; 85025; 85610; 85730; 86038; 86225; 86850; 86900; 86901; 87040; 87070; 87077; 87186; 87205; 87635; 88305; 88307; 93005; 93010; 93306; 94002; 94003; 94640; 96365; 96366; 96367; 96375; 96376; C9113; G0378; J0171; J0360; J0696; J1100; J1170; J1650; J2060; J2185; J2250; J2270; J2354; J2370; J2405; J2704; J3010; J3475; J3480; J3490; J7050; J7611; P9016; P9047; P9059; Q9967; S0020; U0003; U0005

== ENCOUNTER 2020-07-24 15:28 | Inpatient (IN) | payer OTHER ==
[2020-07-24] MEDS ORDERED: Lorazepam 2 MG/ML VIAL ONE (16:04)
[2020-07-24] MEDS ORDERED: Morphine 4 MG/ML VIAL ONE (16:11)
[2020-07-24] MEDS ORDERED: Scopolamine 1.5 mg/72 hour Patch TOP PRN (16:15)
[2020-07-24] MEDS ORDERED: Ondansetron PF 4 MG/2 ML Vial IVP PRN (16:16)
[2020-07-24] MEDS ORDERED: Haloperidol Lactate 5 MG/ML VIAL SLOW IVP PRN (16:16)
[2020-07-24] MEDS ORDERED: Lorazepam 2 MG/ML VIAL SLOW IVP PRN (16:18)
[2020-07-24] MEDS ORDERED: Dexamethasone 4 mg/ml Vial SLOW IVP PRN (16:19)
[2020-07-24] MEDS ORDERED: BIOTENE MOUTH SPRAY 44.3 ML PO PRN (16:20)
[2020-07-24] MEDS ORDERED: Glycopyrrolate 0.2 MG/ML 5 ML SYRINGE SLOW IVP PRN (16:21)
[2020-07-24] MEDS ORDERED: Artificial Tear Sol 15 ML BOT EA EYE PRN (16:22)
[2020-07-24] MEDS ORDERED: Atropine Sulfate 1% Ophth Soln 5 ml Bottle PO PRN (16:22)
[2020-07-24] MEDS: Lorazepam 2 MG/ML VIAL SLOW IVP PRN (16:25)
[2020-07-24] MEDS ORDERED: Acetaminophen 325 MG TAB PO PRN (16:39)
[2020-07-24] MEDS ORDERED: Acetaminophen 650 MG Suppository PR PRN (16:40)
[2020-07-24] MEDS ORDERED: Morphine 4 MG/ML VIAL SLOW IVP PRN ×3 (16:40→17:02)
[2020-07-24] MEDS ORDERED: diphenhydrAMINE 50 MG/ML VIAL IVP PRN (16:41)
[2020-07-24] MEDS ORDERED: diphenhydrAMINE 25 MG CAP PO PRN (16:41)
[2020-07-24] MEDS: Morphine 4 MG/ML VIAL SLOW IVP PRN (16:50)
[2020-07-25] MEDS: Morphine 4 MG/ML VIAL SLOW IVP PRN (11:25)
[2020-07-25] MEDS: Lorazepam 2 MG/ML VIAL SLOW IVP PRN (11:28)
[2020-07-25] MEDS: Morphine 4 MG/ML VIAL SLOW IVP SCH ×5 (13:03→21:13)
[2020-07-25] MEDS: Lorazepam 2 MG/ML VIAL SLOW IVP SCH ×5 (14:03→22:00)
[2020-07-25 21:37] VITALS: BP 73/50; TEMP 98.2
== END 2020-07-26 01:56 | disposition expired | DRG 951 ==
LOC: CCU 15:28 → SURG B 19:29
PROVIDERS: ADMIT Internal Medicine Nephrology; ATTEND Internal Medicine Nephrology
DX: Z51.5 Encounter for palliative care (principal)
CPT/HCPCS: J2060; J2270